=== PATIENT | female | born 2000 | race African-American/Black ===

== ENCOUNTER 2020-12-23 14:35 | Emergency (ER) | payer OTHER ==
[2020-12-23 14:43] VITALS: BP 117/67; PULSE 69; TEMP 98.7; BMI 29.6
[2020-12-23] MEDS ORDERED: KETOROLAC TROMETHAMINE 30 MG/1 ML VIAL IM ONE (16:02)
[2020-12-23] MEDS ORDERED: KETOROLAC TROMETHAMINE 30 MG/1 ML VIAL ONE (16:04)
== END 2020-12-23 17:04 | disposition home or self-care (01) ==
LOC: JERFT 14:35
PROC: 3E0233Z Introduction of Anti-inflammatory into Muscle, Percutaneous Approach (ICD-10-PCS; principal; 2020-12-23)
DX: M79.642 Pain in left hand (principal)
CPT/HCPCS: 99284-25